=== PATIENT | female | born 1980 | race African-American/Black ===

== ENCOUNTER 2022-02-26 15:21 | Emergency (ER) | payer SELFPAY | END 2022-02-26 16:40 | disposition home or self-care (01) | LOC: ERS 15:21 | DX: J30.89 Other allergic rhinitis (principal) | CPT/HCPCS: 99282 ==

== ENCOUNTER 2022-03-05 15:39 | Emergency (ER) | payer SELFPAY ==
[2022-03-05 17:15] LABS: Pregnancy Test - Urine (BHCG) POSITIVE (Negative)
[2022-03-05 17:16] LABS: Pregu Control Background? CLEAR/WHITE (CLR/WHITE); Pregu Control Bar Appear? YES (CONTROL BAR); Specific Gravity 1.017 (1.002-1.036)
== END 2022-03-05 17:02 | disposition home or self-care (01) ==
LOC: ERS 15:39
DX: O99.519 Diseases of the respiratory system complicating pregnancy, unspecified trimester (principal)
CPT/HCPCS: 81025; 99284